=== PATIENT | female | born 1990 | race Caucasian/White ===

== ENCOUNTER 2016-09-20 08:13 | Emergency (ER) | payer MEDICAID, OTHER ==
[~2016-09-20] VITALS: Ht 154.9 cm; Wt 63.5 kg
[2016-09-20 08:15] VITALS: BP 120/70; PULSE 86; TEMP 98.5; O2SAT 95
--- NOTE | 2016-09-20 09:09 | PD ---
HPI Chief Complaint: Related Problem Time Seen by Provider: 08:36 Travel History International Travel<30 days: No Contact w/Intl Traveler<30days: No Traveled to known affect area: No History of Present Illness HPI So 26 year-old woman presents emergency room, lower abdominal cramping with a positive test. She states her last menstrual period was August 23. She is 5 para 2, 0, 2, 2 with one previous miscarriage and one previous ectopic . Over pregnancies were C-sections. States she otherwise has been feeling generally well. She's been urinating more frequently. She has a slight vaginal discharge that she's noticed for the past several days. She also some slight nausea. No other complaints. Cramping started this morning. She's not had any bleeding. She had a positive test yesterday. History Past Medical History Medical History: Denies Significant Hx Tetanus Vaccination: > 5 Years Influenza Vaccination: No LMP: 08/29/2016 : 4 Social History Alcohol Use: Yes (WEEKENDS) Tobacco Use: Yes (/ PPD) Allergies-Medications (Allergen,Severity, Reaction): Coded Allergies: Sudafed (Unverified Adverse Reaction, Severe, hallucination, 09/20/16) HALLUCINATIONS Reported Meds & Prescriptions Reported Meds & Active Scripts Active No Active Prescriptions or Reported Medications Review of Systems Except as stated in HPI: all other systems reviewed are Neg Physical Exam Narrative GENERAL: Well-appearing 26 year-old woman, no acute distress. SKIN: Focused skin assessment warm/dry. CARDIOVASCULAR: Regular rate and rhythm. No murmur appreciated. RESPIRATORY: No accessory muscle use. Clear to auscultation. Breath sounds equal bilaterally. GASTROINTESTINAL: Abdomen soft, non-tender, nondistended. Hepatic and splenic margins not palpable. MUSCULOSKELETAL: No obvious deformities. No clubbing. No cyanosis. No edema. NEUROLOGICAL: Awake and alert. No obvious cranial nerve deficits. Motor grossly within normal limits. Normal speech. PELVIC: Normal external female genitalia. Scant white vaginal discharge and vaginal vault. Mild uterine tenderness. No adnexal masses or palpable uterine enlargement. Data Data Last Documented VS Vital Signs Date Time Temp Pulse Resp B/P Pulse Ox O2 Delivery O2 Flow Rate FiO2 09/20/16 10:00 98.1 76 17 118/77 99 Room Air Orders Beta Hcg (Quant/Titer) (09/20/16 08:37) Gc And Chlamydia Pcr (09/20/16 08:37) Complete Rh (09/20/16 08:37) Wet Prep Profile (09/20/16 08:37) Urinalysis - C+S If Indicated (09/20/16 08:37) Ed Poc Ultrasound (09/20/16 08:37) Us Pelvis (Ques Pr/Ect)W Trans (09/20/16 ) Labs Laboratory Tests Test 09/20/16 09/20/16 08:17 08:55 Urine Color YELLOW Urine Turbidity HAZY Urine pH 7.0 Urine Specific [place] 1.024 Urine Protein TRACE mg/dL Urine Glucose (UA) NEG mg/dL Urine Ketones NEG mg/dL Urine Occult Blood NEG Urine Nitrite NEG Urine Bilirubin NEG Urine Urobilinogen LESS THAN 2.0 MG/DL Urine Leukocyte Esterase NEG Urine RBC LESS THAN 1 /hpf Urine WBC 1 /hpf Urine Squamous Epithelial 13 /hpf Cells Urine Mucus FEW /lpf Microscopic Urinalysis Comment CULT NOT INDICATED Clue Cells (Wet Prep) NONE SEEN Vaginal Trichomonas (Wet Prep) NONE SEEN Vaginal Yeast (Wet Prep) NONE SEEN Human Chorionic Gonadotropin, 3886 MIU/ML Quant Chlamydia trachomatis DNA NOT DETECTED (PCR) Neisseria gonorrhoeae DNA NOT DETECTED (PCR) Blood Type A POSITIVE Rho(D) Type POSITIVE MDM Medical Decision Making Medical Screen Exam Complete: Yes Emergency Medical Condition: Yes Interpretation(s) LABS: HCG 38 86 UA unremarkable Wet prep negative Differential Diagnosis Intrauterine , ectopic , UTI, cervicitis, other Narrative Course Medical decision making 26 year-old woman presents to the emergency department lower abdominal cramping and positive test. Likely very early . Bedside ultrasound shows empty uterus and possible double decidual sign but not definitive for IUP. We'll check UA, GC chlamydia and wet prep, patient states she is Rh+. Likely 48 hour repeat Quant if Quant is suggestive of very early , otherwise formal ultrasound. FINAL: 26 year-old woman with cramping and . She looks well. HCG is a little bit elevated do not see anything on the point of care ultrasound. We will there for we'll order formal ultrasound. I reviewed the ultrasound there is abnormal cystic structures in both adnexa, and it took a lot of pictures the left adnexa looks unusual. Given her history of ectopic this is potentially concerning. The read on the ultrasound is not available. Patient is insisting that she has to leave now. States she has to go medicinal plant picker her kids. I reviewed the abnormal ultrasound and recommended she wait for findings and may need PATIENT OFFICE REP consultation. She states she Still he cannot wait and has to leave at this time. She states that her is or who is with her cannot go pick her up. I offered to call the results of the ultrasound to her although this is clearly suboptimal she will not be able to receive any further care or consultations. She is me the phone number [phone]. She'll be discharged AGAINST MEDICAL ADVICE. Procedures Procedure Narrative Point of care ultrasound: Focus transabdominal ultrasound was performed by me for the purpose of identifying intrauterine . No intrauterine was identified. Diagnosis Primary Impression: Additional Instructions: Follow-up with an OB doctor the first available appointment. Return to the emergency department immediately for any worsening abdominal pain. Med/Other Pt SpecificInfo: No Change to Meds Scripts No Active Prescriptions or Reported Meds Disposition: 07 AGAINST MEDICAL ADVICE Arpit العلي MD Sep 20, 2016 09:09
[2016-09-20 09:56] LABS: BLOOD, URINE NEG (NEG); COMMENT (UR) CULT NOT INDICATED; CULTURE IF INDICATED CULT NOT INDICATED; GLUCOSE,URINE NEG (NEG); KETONE, URINE NEG (NEG); MUCUS URINE FEW /lpf (OCC); NITRITE,URINE NEG (NEG); SQUAMOUS EPITHELIAL CELL URINE 13 /hpf (0-5); URINE COLOR YELLOW (YELLW/STRAW)
[2016-09-20 10:00] VITALS: BP 118/77; PULSE 76; RESP 17; TEMP 98.1; O2SAT 99
[2016-09-20 10:32] LABS: BETA HCG QUANT 3886 MIU/ML (0-5)
[2016-09-20 11:51] LABS: CHLAMYDIA PCR NOT DETECTED (NOT DETECT); NEISSERIA PCR NOT DETECTED (NOT DETECT)
--- NOTE | 2016-09-20 13:34 | RADRPT ---
EXAM DATE/TIME: 09/20/2016 11:33 [facility] COMPARISON: No previous studies available for comparison. INDICATIONS : Pelvic cramping with history of ectopic . LAB(S): Beta-hC MEDICAL HISTORY : Ectopic. Pelvic pains. SURGICAL HISTORY : Appendectomy. section. Cyst removal from abdomen. ENCOUNTER: Initial ACUITY: 1 day PAIN SCORE: 0/10 LOCATION: Bilateral pelvis MEASUREMENTS: UTERUS: 8.8 x 6.8 x 4.8 cm ENDOMETRIAL STRIPE: 11 mm RIGHT OVARY: 3.6 x 1.7 x 1.9 cm LEFT OVARY: 3.7 x 2.6 x 2.9 cm FREE FLUID: Yes FINDINGS: There is an intrauterine gestational sac which is too small for gestational age measurement. No feta l pole or yolk sac is identified. There is a small complex cyst within the left ovary measuring 2.5 cm. Differential diagnosis includes very early intrauterine , missed , and ectopic . Correlation with serial beta hCG levels is recommended. There is a small amount of free fluid within the cul-de-sac. The right ovary is normal. CONCLUSION: 1. Probable intrauterine gestational sac without pole or yolk sac identified. Small complex c yst is noted within the left ovary measuring 2.5 cm in greatest dimension. Differential diagnosis in cludes very early intrauterine , missed and ectopic . Correlation with se rial beta hCG levels is recommended for further evaluation of this patient. 2. Free fluid within the cul-de-sac. Domingo Cooley MD on September 20, 2016 at 13:10 Board Certified Radiologist. This report was verified electronically.
== END 2016-09-20 12:21 | disposition left against medical advice (07) ==
LOC: NEPE 08:13
DX: O26.899 Other specified pregnancy related conditions, unspecified trimester (principal); R10.30 Lower abdominal pain, unspecified; Z3A.00 Weeks of gestation of pregnancy not specified
CPT/HCPCS: 76700; 76817; 81001; 84702; 86901; 87210; 87491; 87591

== ENCOUNTER 2016-09-22 07:32 | Emergency (ER) | payer OTHER ==
[~2016-09-22] VITALS: Ht 154.9 cm; Wt 63.5 kg
[2016-09-22 07:35] VITALS: BP 132/75; PULSE 71; RESP 15; TEMP 98.2; O2SAT 100
--- NOTE | 2016-09-22 08:15 | PD ---
HPI . need hcg quantitative testing Chief Complaint: Medical Clearance Time Seen by Provider: 08:17 Travel History International Travel<30 days: No Contact w/Intl Traveler<30days: No Traveled to known affect area: No History of Present Illness HPI 26-year-old female who was in the emergency department on September 20, 2016 with possible concerns of ectopic here for repeat hCG level. Apparently on that day patient had to leave to pick her kids up and did not stay for her visit. Ultrasound was done and could not confirm IUP patient was therefore told to come back to the emergency department for repeat hCG levels. Notes reviewed and there was concern for possible ectopic . She is no longer having any abdominal pain. last menstrual period 08/23/16. She does not have an water quality specialist at this moment. PFSH Past Medical History Hx Anticoagulant Therapy: No Cardiovascular Problems: No Chemotherapy: No Cerebrovascular Accident: No Diabetes: No Diminished Hearing: No Genitourinary: Yes Respiratory: No ?: LMP: 08/23/16 : 4 Miscarriage: 2 Past Surgical History Appendectomy: Yes Section: Yes (X2) Hysterectomy: No Other Surgery: Yes (CYST REMOVAL FROM ABDOMEN) Social History Alcohol Use: Yes (WEEKENDS) Tobacco Use: Yes (1/2 PPD) Substance Use: No Allergies-Medications (Allergen,Severity, Reaction): Coded Allergies: Sudafed (Unverified Adverse Reaction, Severe, hallucination, 09/22/16) HALLUCINATIONS Reported Meds & Prescriptions Reported Meds & Active Scripts Active No Active Prescriptions or Reported Medications Review of Systems General / Constitutional: No: Fever Eyes: No: Visual changes HENT: No: Headaches Cardiovascular: No: Chest Pain or Discomfort Respiratory: No: Shortness of Breath Gastrointestinal: No: Abdominal Pain Genitourinary: No: Dysuria Musculoskeletal: No: Pain Skin: No Rash Neurologic: No: Weakness Psychiatric: No: Depression Endocrine: No: Polydipsia Hematologic/Lymphatic: No: Easy Bruising Physical Exam Narrative GENERAL: AAO x 3, no acute distress, Well-nourished, well-developed patient. SKIN: Warm and dry. No visible rashes or bruising. HEAD: Normocephalic and atraumatic. EYES: No scleral icterus. No injection or drainage. ENT: No nasal drainage noted. . Airway patent. NECK: Supple, trachea midline. No JVD. CARDIOVASCULAR: Regular rate and rhythm without murmurs, gallops, or rubs. RESPIRATORY: Breath sounds equal bilaterally. No accessory muscle use. No rhonchi or rales. GASTROINTESTINAL: Abdomen soft, non-tender, nondistended. EXTREMITIES: No cyanosis or edema. BACK: Nontender without obvious deformity. No CVA tenderness. PSYCH: AAO x 3, normal affect. Data Data Last Documented VS Vital Signs Date Time Temp Pulse Resp B/P Pulse Ox O2 Delivery O2 Flow Rate FiO2 09/22/16 07:35 98.2 71 15 132/75 100 Orders Beta Hcg (Quant/Titer) (09/22/16 07:56) Us Pelvis (Ques Pr/Ect)W Trans (09/22/16 08:21) Labs Laboratory Tests Test 09/22/16 07:58 Human Chorionic Gonadotropin, 9278 MIU/ML Quant MDM Medical Decision Making Medical Screen Exam Complete: Yes Emergency Medical Condition: Yes Medical Record Reviewed: Yes Differential Diagnosis , ectopic , miscarriage Narrative Course 26-year-old female who was in the emergency department on September 20, 2016 with possible concerns of ectopic here for repeat hCG level. Apparently on that day patient had to leave to pick her kids up and did not stay for her visit. Ultrasound was done and could not confirm IUP patient was therefore told to come back to the emergency department for repeat hCG levels. Notes reviewed and there was concern for possible ectopic . She is no longer having any abdominal pain. last menstrual period 08/23/16. She does not have an water quality specialist at this moment. Patient seen and examined. There are no abnormal findings on examination. She is not any type of abdominal pain. Will go ahead and check a beta hCG. Nonetheless I will also check an ultrasound as there was concern of possible ectopic . Beta HCG checked and doubling. US Last Impressions Pelvis Ultrasound 09/22/16 0821 Signed Impressions: Service Date/Time: September 09:41 - CONCLUSION: Findings are suspicious for ectopic on the left side with a pseudo-gestational sac within the uterine cavity and clinical correlation is suggested. Mike Hunter MD Case discussed with Dr. Spain: contacting OB hospitalist for further recommendations. Patient was transferred to a medical bed for further care and recommendations. She does not have an water quality specialist for f/u and will need to see someone prior to discharge. The next provider will determine her disposition. Additional Instructions: Please return to emergency department if your symptoms return or worsen. Follow up with your primary care provider. Take medications as prescribed. Please see an EYE GLASS FRAME POLISHER as soon as possible. Med/Other Pt SpecificInfo: No Change to Meds Scripts No Active Prescriptions or Reported Meds Condition: Stable Krupa Holder Sep 22, 2016 08:15
[2016-09-22 08:42] LABS: BETA HCG QUANT 9278 MIU/ML (0-5)
--- NOTE | 2016-09-22 10:38 | RADRPT ---
EXAM DATE/TIME: 09/22/2016 09:41 [facility] COMPARISON: No previous studies available for comparison. INDICATIONS : Pelvic pain 2 days ago. LAB(S): Beta-hC,278 MEDICAL HISTORY : . SURGICAL HISTORY : section. Appendectomy. ENCOUNTER: Subsequent ACUITY: 3 days PAIN SCORE: 2/10 LOCATION: Bilateral pelvis MEASUREMENTS: UTERUS: 10.1 x 5.0 x 6.4 cm ENDOMETRIAL STRIPE: 12 mm RIGHT OVARY: 2.0 x 1.5 x 1.8 cm LEFT OVARY: 2.4 x 1.7 x 2.3 cm FREE FLUID: Yes CROWN RUMP LENGTH: Not visualized. FHR: Not visualized. FINDINGS: Intrauterine gestational sac is present measuring 9 mm without evidence for yolk sac or pole. I n the left adnexa there is an approximate 2.3 cm ringlike area is suspicious for an ectopic . There is no free fluid. There may be a small uterine fibroid measuring 1.3 cm in size. CONCLUSION: Findings are suspicious for ectopic on the left side with a pseudo-gestational sac within t he uterine cavity and clinical correlation is suggested. Mike Hunter MD on September 22, 2016 at 10:34 Board Certified Radiologist. This report was verified electronically.
[2016-09-22 11:17] VITALS: BP 135/86; PULSE 96; RESP 17; TEMP 97.8; O2SAT 99
[2016-09-22 13:20] VITALS: BP 98/60; PULSE 67; RESP 16; TEMP 98; O2SAT 99
--- NOTE | 2016-09-22 13:38 | PD ---
Physical Exam Narrative I, Dr. Spain, have reviewed the advance practice practitioner's documentation and am in agreement, met with the patient face to face, made the diagnosis, and the medical decision making was done by me. *My assessment and Findings: ectopic 26yo who is 4 weeks 2 days as per LMP of 08/23/16 here for repeat bHCG and ultrasound. Pt was initially seen in fast track and then transfer to medical bed after ultrasound results. Pt was seen 2 days ago in the ED and had bHCG 3886. Pt AMA at that time. Today her bHCG is 9278. US suspicious for ectopic on left side with a pseudo gestational sac within the uterine cavity. Pt has history of ectopic and had injection in 03/2016 for the ectopic . Discussed with OB hospitalist Dr. Berkowitz who will come evaluate the patient. Pt has no OBGYN and had appointment for woman assistance for medicaid. Pt was evaluated by OB hospitalist Dr. Berkowitz in the ED today. As per Dr. Berkowitz, pt refused methotrexate and surgery today. Pt agrees to return to the ED in 48 hours for repeat bHCG and ultrasound. Pt agreed to return to the ED immediately if she has any abdominal pain or vaginal bleeding. Pt understands that she may have an ectopic and can risk having that ectopic rupture which can be life threatening. Return precautions given. Data Data Last Documented VS Vital Signs Date Time Temp Pulse Resp B/P Pulse Ox O2 Delivery O2 Flow Rate FiO2 09/22/16 15:16 98.1 68 16 130/77 99 09/22/16 13:20 Room Air Orders Beta Hcg (Quant/Titer) (09/22/16 07:56) Us Pelvis (Ques Pr/Ect)W Trans (09/22/16 08:21) Labs Laboratory Tests Test 09/22/16 07:58 Human Chorionic Gonadotropin, 9278 MIU/ML Quant MDM Supervised Visit with ELSIE: Yes Diagnosis Primary Impression: Ectopic Qualified Code: O00.90 - Ectopic , unspecified location, unspecified whether intrauterine present Patient Instructions: General Instructions Departure Forms: Tests/Procedures Additional Instruction: Please return to the ED in 48 hours for repeat bHCG and ultrasound. Please return to the ED immediately if you have abdominal pain or vaginal bleeding. Med/Other Pt SpecificInfo: No Change to Meds Scripts No Active Prescriptions or Reported Meds Disposition: 01 DISCHARGE HOME Condition: Stable Bruna Spain DO Sep 22, 2016 13:38
--- NOTE | 2016-09-22 15:03 | PD.CONS ---
HPI Travel History International Travel<30 Days: No Contact w/Intl Traveler<30Days: No Known Affected Area: No (Billy Gonzalez MD R2) History of Present Illness HPI Ms. Baig is a 26 yo who presents to [facility] ED for follow-up appointment due to lack of OB provider. [Patient last seen 09/20 with complaint of abdominal cramping in association with positive test; bedside US did not show IUP so formal US done- Probable IU gestational sac w/o pole or yolk sac identified. Small complex cyst noted within the left ovary measuring 2.5 cm in greatest dimension. DDX includes early IUP, missed , ectopic . Correlation recommended. Free fluid within the cul-de-sac. hCG elevated at 3886. Patient left AMA due to needing to picker tender helper her kids; patient left with plan of repeat hCG quant in 48 hrs.] Patient reports that she returned today per ED instructions 09/20, but that she does not have any symptoms at this time. Patient states her abdominal cramping has resolved. Patient does not report fevers or vaginal bleeding. No other symptoms reported. Patient's history was reviewed; she confirms history taken at last ED visit that her last menstrual period was in late August (~08/23). Patient states that she had intercourse ~3 days prior to this episode of vaginal bleeding. Patient states that she did not have significant intercourse prior to this day in August, and is convinced that this was date of conception. Patient reports her prior ectopic was treated w/ methotrexate 03/2016 ; she denies any follow-up quantitative hCG testing. She denies any known history of SCDs or pelvic inflammatory disease [per EMR, empiric treatment for cervicitis 05/2016 without identified organism]. Patient reports normal monthly menstrual periods lasting 57 days prior to and following removal of Nexplanon (placed -03/2016, with patient self-removing at home 03/2016 following ectopic ). Patient reports two prior CS (first for arrest of descent), and 1 prior miscarriage at 12 weeks gestation. Patient states she does not have an open provider at this time; she was trying to get resources recently since getting positive test. Patient reports smoking but denies other substance abuse. Para: 2 : 5 Miscarriage: 2 (Billy Gonzalez MD R2) History Past Medical History Narrative Medical Ectopic Empiric treatment for cervicitis 05/2016 without identified organism (Billy Gonzalez MD R2) Obstetric History Obstetric History Miscarriage at 12 weeks gestation Ectopic 03/2016 2 deliveries; first indicated by rest of descent (Billy Gonzalez MD R2) Past Surgical History Narrative Surgical CSx2 (Billy Gonzalez MD R2) Family History Narrative Family History None significant reported (Billy Gonzalez MD R2) Social History Narrative Social History Does not have KILN TESTER at this time Alcohol Use: No Tobacco Use: Yes Substance Abuse: No (Billy Gonzalez MD R2) Allergies-Medications (Allergen,Severity, Reaction): Coded Allergies: Sudafed (Unverified Adverse Reaction, Severe, hallucination, 09/22/16) HALLUCINATIONS Home Meds No Active Prescriptions or Reported Meds Review of Systems General / Constitutional: No: Fever, Chills Eyes: No: Blurred Vision HENT: No: Headaches Cardiovascular: No: Chest Pain or Discomfort Respiratory: No: Short of Breath Gastrointestinal: No: Nausea, Vomiting, Abdominal Pain Genitourinary: No: Urgency, Dysuria (Billy Gonzalez MD R2) Physical Exam Vital Signs Date Time Temp Pulse Resp B/P Pulse Ox O2 Delivery O2 Flow Rate FiO2 09/22/16 13:20 98.0 67 16 98/60 99 Room Air 09/22/16 11:17 97.8 96 17 135/86 99 Room Air 09/22/16 07:35 98.2 71 15 132/75 100 Narrative GENERAL: Patient appears comfortable, in no acute distress. SKIN: Warm and dry, no rashes appreciated EYES: No scleral icterus, injection, or drainage. CARDIOVASCULAR: Regular rate and rhythm without murmurs. Normal peripheral perfusion in lower extremities. RESPIRATORY: Normal respiratory rate. Lungs clear to auscultation bilaterally. GASTROINTESTINAL: Abdomen soft, nondistended, nontender. Bowel sounds normal. MUSCULOSKELETAL: No lower extremity swelling. No appreciated calf asymmetry. NEURO/PSYCH: Awake, alert, and oriented. Cranial nerves grossly normal. Grossly normal motor and sensory function. (Billy Gonzalez MD R2) Data Data Orders Beta Hcg (Quant/Titer) (09/22/16 07:56) Us Pelvis (Ques Pr/Ect)W Trans (09/22/16 08:21) Labs Laboratory Tests Test 09/22/16 07:58 Human Chorionic Gonadotropin, 9278 Quant (Billy Gonzalez MD R2) [facility] Medical Record Reviewed: Yes Interpretation(s) Last 72 hours Impressions Pelvis Ultrasound 09/22/16 0821 Signed Impressions: Service Date/Time: September 09:41 - CONCLUSION: Findings are suspicious for ectopic on the left side with a pseudo-gestational sac within the uterine cavity and clinical correlation is suggested. Mkie Hunter MD US 09/20: Probable intrauterine gestational sac without pole or yolk sac identified. Small complex cyst noted within the left ovary measuring 2.5 cm in greatest dimension. DDX includes early IUP, missed , ectopic . Correlation recommended. Free fluid within the cul-de-sac Narrative Course / MDM HCG elevation/recent abdominal pain. Impression: Recent Abd pain. Hcg 3886 -> 9278 in 48hrs. ~4-5 week gestation based on LMP. 09/22 US with suggestion of ectopic with pseudo- gestational sac and uterus. Patient asymptomatic; normal vital signs -Discussed with patient that her hCG levels and rate of increase over the past 2 days are of unclear etiology. Ultrasound findings also confound her presentation, however significant concern for ectopic is present. Patient given options of treatment for suspected ectopic with methotrexate followed by hCG monitoring versus discussion with DOCKING PILOT for possible surgical evaluation versus repeating hCG and US in 48 hours -Due to possibility of IUP, patient refused possibility of methotrexate or surgical evaluation -Patient agreed to follow-up at ED 09/24 for repeat hCG and US -Patient agrees to seek ED treatment sooner with any new symptoms such as fevers/chills, abdominal pain, vaginal bleeding, etc -Will attempt to have OB follow-up established for patient by her next ED visit 09/24 since this is not available at this time (Billy Gonzalez MD R2) Attending Attestation 26 yo @ 4w2d by LMP 08/23/2016 (definite LMP with regular menses). Per patient date of conception 09/20/2016 as she was not sexually active in the months prior. She had a + test a home and presented to the ER 09/20 with some mild cramping, which resolved. Bhcg was 3886 at that time. Her TVUS noted a small gestational sac, too early to see a pole. Also noted was a small RIGHT ovarian cyst. The patient had a history of an ectopic at an outside facility 03/2016. She reports being told she had an ectopic after presenting with vaginal bleeding while using Nexplanon. She received a single dosage of MTX and had no follow-up. She reports normal menses after the Nexplanon was removed (patient removed herself Mar 2016 after the MTX). Today she represented to the ER as a routine f/u for a repeat Bhcg. She denies any symptoms, no VB, abd or pelvic pain. N/V or GI symptoms. Today' s Bhcg was 9200, a significated increase for this gestaional age. She then received a second TVUS which noted a 9mm gestational sac, without pole. There was a 2.3 cyst vs ring in the LEFT adnexa. The patient is concerned about the discrepancy in her clinic symptoms, Bhcg for gestational age, and her change in TVUS report. We reviewed her options and discussed possible ectopic . She declines intervention at this time, no MTX or other management. She states she will return for a repeat BHcg and TVUS as indicated. We discussed risks of observation if ectopic , again she reports no symptoms and her exam is negative. We also discussed various options upon re- evaluation. Patient seen and examined with Dr. Gomez. Reviewed plan of care with ER physician. (Delia Berkowitz MD) Disposition: 01 DISCHARGE HOME Condition: Stable Scripts No Active Prescriptions or Reported Meds Patient Instructions: General Instructions Additional Instructions: Please return to the ED in 48 hours for repeat bHCG and ultrasound. Please return to the ED immediately if you have abdominal pain or vaginal bleeding. Departure Forms: Tests/Procedures Billy Gonzalez MD R2 Sep 22, 2016 15:03 Delia Berkowitz MD Sep 22, 2016 18:23
[2016-09-22 15:16] VITALS: BP 130/77; TEMP 98.1
== END 2016-09-22 15:27 | disposition home or self-care (01) ==
LOC: NEPC 07:32
DX: O00.90 Unspecified ectopic pregnancy without intrauterine pregnancy (principal)
CPT/HCPCS: 76700; 76817; 81001; 84702; 86901; 87210; 87491; 87591

== ENCOUNTER 2017-06-30 07:58 | Emergency (ER) | payer MEDICAID, OTHER ==
[~2017-06-30] VITALS: Ht 152.4 cm; Wt 70.0 kg
[2017-06-30 08:02] VITALS: BP 117/77; PULSE 67; RESP 14; TEMP 98.3; O2SAT 100
[2017-06-30 08:30] VITALS: BP 110/60; PULSE 60; RESP 17; TEMP 98.1; O2SAT 98
--- NOTE | 2017-06-30 08:39 | PD ---
HPI Chief Complaint: ENT Complaint Time Seen by Provider: 08:29 Travel History International Travel<30 days: No Contact w/Intl Traveler<30days: No Traveled to known affect area: No History of Present Illness HPI 27yo F presents to the ED with c/o right ear pain for 4 days. Said she put some peroxide in it after the pain started. She is now starting to have pain in left ear. Denies any fever, throat pain, drooling, chest pain, sob, n/v, abdominal pain, focal weakness or numbness. PFSH Past Medical History Medical History: Denies Significant Hx Hx Anticoagulant Therapy: No Cardiovascular Problems: No Chemotherapy: No Cerebrovascular Accident: No Diabetes: No Diminished Hearing: No Genitourinary: Yes Respiratory: No Influenza Vaccination: No ?: Not : 5 Para: 3 Miscarriage: 2 Past Surgical History Appendectomy: Yes Section: Yes (X3) Hysterectomy: No Other Surgery: Yes (CYST REMOVAL FROM ABDOMEN) Social History Alcohol Use: Yes (occas) Tobacco Use: Yes Substance Use: No Allergies-Medications (Allergen,Severity, Reaction): Coded Allergies: pseudoephedrine (Unverified Adverse Reaction, Severe, hallucination, ) HALLUCINATIONS Reported Meds & Prescriptions Reported Meds & Active Scripts Active Tylenol (Acetaminophen) 325 Mg Tab 650 Mg PO Q6H Amoxicillin 500 Mg Cap 1,000 Mg PO Q8HR 5 Days Cipro Hc Otic Drops (Ciprofloxacin/Hydrocortisone) 0.2-1% Susp 3 Drop RIGHT EAR BID 7 Days Review of Systems Except as stated in HPI: all other systems reviewed are Neg Physical Exam Narrative GENERAL: 27yo F not in distress. SKIN: Focused skin assessment warm/dry. HEAD: Atraumatic. Normocephalic. EYES: Pupils equal and round. No scleral icterus. No injection or drainage. ENT: Right ear: Erythematous, Dull TM. Mild external ear canal edema. +TTP pulling of external ear. No mastoid ttp. Left ear: Mild erythema. No mastoid ttp. Throat: Uvula midline. No erythema. No tonsillar exudate. No trismus. NECK: Trachea midline. No JVD. CARDIOVASCULAR: Regular rate and rhythm. No murmur appreciated. RESPIRATORY: No accessory muscle use. Clear to auscultation. Breath sounds equal bilaterally. GASTROINTESTINAL: Abdomen soft, non-tender, nondistended. MUSCULOSKELETAL: No obvious deformities. No clubbing. No cyanosis. No edema. NEUROLOGICAL: Awake and alert. No obvious cranial nerve deficits. Motor grossly within normal limits. Normal speech. PSYCHIATRIC: Appropriate mood and affect; insight and judgment normal. Data Data Last Documented VS Vital Signs Date Time Temp Pulse Resp B/P (MAP) Pulse Ox O2 Delivery O2 Flow Rate FiO2 06/30/17 08:30 98.1 60 17 110/60 (77) 98 Orders Orders Acetaminophen (Tylenol) (06/30/17 08:45) Amoxicillin (Trimox) (06/30/17 08:45) MDM Medical Decision Making Medical Screen Exam Complete: Yes Emergency Medical Condition: Yes Differential Diagnosis Otitis media vs. otitis externa Narrative Course 27yo F with right ear pain for 4 days. On exam, pt has erythema and dullness in right TM. However, she is also starting to have external canal edema and pain with external ear pulling. Impression is otitis media and developing otitis externa of right ear. Will prescribe amoxcillin and give first dose here along with acetaminophen. Will give cipro HC otic to cover otitis externa as well. Return precautions given. Diagnosis Primary Impression: Otitis media Qualified Codes: H66.90 - Otitis media, unspecified, unspecified ear Additional Impression: Otitis externa Qualified Codes: H60.501 - Unspecified acute noninfective otitis externa, right ear Patient Instructions: General Instructions Departure Forms: Tests/Procedures Additional Instructions: Please follow up with your primary care physician in 3-7 days. Return to the ED if symptoms worsen. Med/Other Pt SpecificInfo: Prescription(s) given Scripts Acetaminophen (Tylenol) 325 Mg Tab 650 MG PO Q6H, #20 TAB 0 Refills Prov: Bruna Spain DO 06/30/17 Amoxicillin (Amoxicillin) 500 Mg Cap 1000 MG PO Q8HR for Infection for 5 Days, CAP 0 Refills Prov: Bruna Spain DO 06/30/17 Ciprofloxacin-Hydrocortisone Otic Drops (Cipro Hc Otic Drops) 0.2-1% Susp 3 DROP RIGHT EAR BID for Infection for 7 Days, #1 BOTTLE 0 Refills Prov: Bruna Spain DO 06/30/17 Disposition: 01 DISCHARGE HOME Condition: Stable Bruna Spain DO Jun 30, 2017 08:39
[2017-06-30] MEDS ORDERED: AMOX500C PO (08:42)
[2017-06-30] MEDS ORDERED: CIPRHC10A RIGHT EAR (08:42)
[2017-06-30] MEDS ORDERED: TYLE325T PO (08:42)
[2017-06-30] MEDS ORDERED: ACETAMINOPHEN 325 MG TAB PO ONE (08:45)
[2017-06-30] MEDS ORDERED: AMOXICILLIN (TRIHYDRATE) 500 MG CAP PO ONE (08:45)
== END 2017-06-30 09:45 | disposition home or self-care (01) ==
LOC: NEPE 07:58
DX: H66.91 Otitis media, unspecified, right ear (principal); H60.91 Unspecified otitis externa, right ear; Z72.0 Tobacco use; Z88.5 Allergy status to narcotic agent
CPT/HCPCS: 99283